=== PATIENT | male | born 1960 | race Two or more races ===

== ENCOUNTER 2019-03-16 19:46 | Emergency (ER) | payer OTHER ==
[~2019-03-16] VITALS: Ht 177.8 cm; Wt 95.3 kg
--- NOTE | 2019-03-16 19:59 | Emergency Room Report ---
History of Present Illness General Chief Complaint: Left Lip Abrasion Source: Patient, EMS Present Illness HPI 58-year-old male presents with mechanical fall, patient was drinking, fell forward hit his left lip, no LOC, no chest pain or shortness of breath, no proceeding symptoms, patient states he was drinking prior. Patient endorses some sharp lip pain aggravated with movement alleviated with rest, severity is mild. Patient presents for evaluation via EMS Allergies: Coded Allergies: No Known Allergies (Unverified , 03/16/19) Patient History Past Medical History: see triage record Social History: Reports: alcohol use Reviewed Nursing Documentation: PMH: Agreed; PSxH: Agreed Review of Systems All Other Systems: negative except mentioned in HPI Physical Exam Vital Signs Date Time Temp Pulse Resp B/P (MAP) Pulse Ox O2 Delivery O2 Flow Rate FiO2 03/16/19 19:40 98.2 96 18 115/72 (86) 98 Sp02 EP Interpretation: reviewed, normal General Appearance: well appearing, no apparent distress, alert Head: normocephalic, other - Left lip abrasion bottom lip, no laceration Eyes: bilateral eye PERRL, bilateral eye EOMI ENT: uvula midline, moist mucus membranes Neck: supple, thyroid normal, supple/symm/no masses, other - No C-spine tenderness Respiratory: lungs clear, no respiratory distress, no retraction, no accessory muscle use Cardiovascular #1: normal peripheral pulses, regular rate, rhythm, no edema, no gallop, no murmur Gastrointestinal: non tender, soft, no guarding, no rebound Musculoskeletal: normal inspection Neurologic: alert, oriented x3 Psychiatric: mood/affect normal Skin: no rash, warm/dry Medical Decision Making Diagnostic Impression: Primary Impression: Fall Qualified Codes: W19.XXXA - Unspecified fall, initial encounter Additional Impressions: Alcohol intoxication Qualified Codes: F10.920 - Alcohol use, unspecified with intoxication, uncomplicated Abrasion of lip, initial encounter ER Course 58-year-old male history of alcohol use presents with mechanical fall, patient states he was drinking fell forward hit his face, no LOC denies any midline neck pain, patient was given a Tdap, patient was also checked for head bleed. CT brain negative Patient with a lip abrasion no indication for suturing Patient is pending sobriety, most likely to be discharged once sober CT/MRI/US Diagnostic Results CT/MRI/US Diagnostic Results : Impression EXAM: CT Head Without Intravenous Contrast CLINICAL HISTORY: pain. s/p fall TECHNIQUE: Axial computed tomography images of the head/brain without intravenous contrast. CTDI is 70.48 mGy and DLP is 1403 mGy-cm. One or more of the following dose reduction techniques were used: automated exposure control, adjustment of the mA and/or kV according to patient size, use of iterative reconstruction technique. COMPARISON: none FINDINGS: No intracranial hemorrhage, abnormal intra- or extra-axial collections or parenchymal lesions are seen. There are involutional changes with prominence of the sulci, basal cisterns and ventricles. Scattered white matter hypoattenuations are present, likely from small vessel disease. The levy-white differentiation is preserved. No evidence of mass effect, midline shift, or edema. The osseous structures are unremarkable. The visualized portions of the paranasal sinuses are clear. Right parietal region scalp contusion is noted. There is mild thickening of the left posterior frontal scalp as well, also suspicious for possible scalp contusion. IMPRESSION: 1. Mild right parietal and possibly left posterior frontal scalp contusions but no associated skull fracture or acute intracranial process. 2. Involutional changes with small vessel disease. Radiologist: Radha Gonzalez MD Electronically Signed: 03/16/19 21:22 Study ready at 20:47 and initial results transmitted at 21:22 Last Vital Signs Date Time Temp Pulse Resp B/P (MAP) Pulse Ox O2 Delivery O2 Flow Rate FiO2 03/16/19 19:40 98.2 96 18 115/72 (86) 98 Disposition: HOME, SELF-CARE Condition: Stable Referrals: [facility]. [facility] Patient Instructions: Abrasion, [id number], Traumatic Brain Injury Additional Instructions: The patient was provided with discharge instructions, notified to follow-up with a primary care doctor and or specialist in the next 24-48 hours, and to return to the ED if they have worsening of their symptoms. Please note that this report is being documented using [employer] technology. This can lead to erroneous entry secondary to incorrect interpretation by the dictating instrument. Reno Tena MD Mar 16, 2019 19:59
[2019-03-16] MEDS ORDERED: Tetanus/Diptheria/Pertussis IM ONE ×2 (20:00→20:58)
[2019-03-16 20:40] VITALS: BP 115/72
--- NOTE | 2019-03-16 20:40 | NUR ---
ED Nurse Note: Patient was BIBAfrom the street due to ETOH, and fall. Patient presented with abrasion of his left side of face. AAO x1, VSS at this time, skin warm to touch.
[2019-03-16 23:40] VITALS: BP 125/75
--- NOTE | 2019-03-17 01:00 | NUR ---
ED Nurse Note: Patient is the bed resting, VSS at this time, no acute disstress noticed.
[2019-03-17 02:41] VITALS: BP 130/65
[2019-03-17 06:19] VITALS: BP 130/65
--- NOTE | 2019-03-17 06:21 | NUR ---
ED Nurse Note: Pt cleared by health care Provider for discharge. DC instructions/prescription was given and explained to pt and verbalized understanding of teachings. All medical deviecs such as ID band removed. Pt is AAO x4, ambulatory and left with all personal belongings.
--- NOTE | 2019-03-18 08:28 | Diagnostic Imaging Report ---
EXAM: CT Head Without Intravenous Contrast CLINICAL HISTORY: pain. s/p fall TECHNIQUE: Axial computed tomography images of the head/brain without intravenous contrast. CTDI is 70.48 mGy and DLP is 1403 mGy-cm. One or more of the following dose reduction techniques were used: automated exposure control, adjustment of the mA and/or kV according to patient size, use of iterative reconstruction technique. COMPARISON: none FINDINGS: No intracranial hemorrhage, abnormal intra- or extra-axial collections or parenchymal lesions are seen. There are involutional changes with prominence of the sulci, basal cisterns and ventricles. Scattered white matter hypoattenuations are present, likely from small vessel disease. The levy-white differentiation is preserved. No evidence of mass effect, midline shift, or edema. The osseous structures are unremarkable. The visualized portions of the paranasal sinuses are clear. Right parietal region scalp contusion is noted. There is mild thickening of the left posterior frontal scalp as well, also suspicious for possible scalp contusion. IMPRESSION: 1. Mild right parietal and possibly left posterior frontal scalp contusions but no associated skull fracture or acute intracranial process. 2. Involutional changes with small vessel disease.
== END 2019-03-17 06:21 | disposition home or self-care (01) ==
LOC: EDBD 19:46 → EMR 20:17 → EDBD 20:17 → EMR 03-17 06:21
DX: S00.511A Abrasion of lip, initial encounter (principal); F10.129 Alcohol abuse with intoxication, unspecified; Z23 Encounter for immunization; W19.XXXA Unspecified fall, initial encounter; Y92.9 Unspecified place or not applicable
CPT/HCPCS: 70450; 90471; 90715; 99284

== ENCOUNTER 2019-06-16 16:52 | Emergency (ER) | payer OTHER ==
[~2019-06-16] VITALS: Ht 165.1 cm; Wt 81.6 kg
--- NOTE | 2019-06-16 16:53 | NUR ---
ED Nurse Note: PT was brought in by [facility] [id number], found on [address], tripped and fell, EtoH, PT states to RA that he been drinking quite a bit, L-forehead above brow laceration approximately 1inch, no hx or meds, bystander called 911. VS stable 140/96; HR 84; T 98.0 oral, saturating at 100% on RA. No reported seizure with RA unit.
[2019-06-16] MEDS ORDERED: Tetanus/Diptheria/Pertussis IM ONE ×2 (17:00→17:18)
[2019-06-16 17:24] VITALS: BP 140/96
--- NOTE | 2019-06-16 18:06 | Emergency Room Report ---
History of Present Illness General Chief Complaint: Alcohol Intoxication Source: Patient Present Illness HPI 59-year-old male presents with mechanical trip and fall, positive LOC, hit his left head, no neck tenderness, he endorses a frontal headache no aggravating relieving factors severity is mild, constant, patient denies any nausea vomiting chest pain shortness of breath patient reports that he was drinking prior to coming to the ED, patient presents for evaluation. Allergies: Coded Allergies: No Known Allergies (Unverified , 03/16/19) Patient History Past Medical History: see triage record Social History: Reports: alcohol use Reviewed Nursing Documentation: PMH: Agreed; PSxH: Agreed Nursing Documentation-PMH Past Medical History: No Stated History Review of Systems All Other Systems: negative except mentioned in HPI Physical Exam Vital Signs Date Time Temp Pulse Resp B/P (MAP) Pulse Ox O2 Delivery O2 Flow Rate FiO2 06/16/19 16:44 98.1 84 18 140/96 (111) 99 Room Air Sp02 EP Interpretation: reviewed, normal General Appearance: well appearing, no apparent distress, alert Head: normocephalic, other - 1 cm laceration left forehead Eyes: bilateral eye PERRL, bilateral eye EOMI ENT: uvula midline, moist mucus membranes Neck: supple, thyroid normal, supple/symm/no masses Respiratory: lungs clear, no respiratory distress, no retraction, no accessory muscle use Cardiovascular #1: normal peripheral pulses, regular rate, rhythm, no edema, no gallop, no murmur Gastrointestinal: non tender, soft, no guarding, no rebound Musculoskeletal: normal inspection Neurologic: alert, oriented x3 Psychiatric: mood/affect normal Skin: no rash, warm/dry Procedures Laceration/Wound Repair Laceration/Wound Repair : Consent: Verbal Wound Location: head Wound's Depth, Shape: superficial Wound Length (cm): 1 Wound Explored: clean Irrigated w/ Saline (ccs): 50 Betadine Prep?: Yes Wound Repaired With: Dermabond Patient Tolerated: Well Complications: None Medical Decision Making Diagnostic Impression: Primary Impression: Acute alcoholic intoxication Qualified Codes: F10.920 - Alcohol use, unspecified with intoxication, uncomplicated Additional Impressions: Closed head injury Qualified Codes: S09.90XA - Unspecified injury of head, initial encounter Forehead laceration Qualified Codes: S01.81XA - Laceration without foreign body of other part of head, initial encounter ER Course 59-year-old male presents with closed head injury after mechanical fall, positive LOC, C-spine negative for any acute processes, patient no longer intoxicated after observation CT face, CT brain negative for any acute processes Patient with old nasal fracture nothing new, no pain midface, Tdap given, laceration closed with Dermabond Dispo home w/ return precautions CT/MRI/US Diagnostic Results CT/MRI/US Diagnostic Results : Impression Preliminary Findings Only See Final Report For Complete Findings CT HEAD: INDICATION: Trauma TECHNIQUE: Multiple, contiguous 5 mm axial cuts of the brain are obtained from the posterior fossa to the cranial vault. Sagittal and coronal reformatted images provided. No IV contrast is administered. COMPARISON: March 16, [address] without IV contrast FINDINGS: No intracranial hemorrhage, abnormal intra- or extra-axial collections or parenchymal lesions are seen. There are involutional changes with prominence of the sulci, basal cisterns and ventricles. Scattered white matter hypoattenuations are present, likely from small vessel disease. The levy- white differentiation is preserved. No evidence of mass effect, midline shift, or edema. The osseous structures are unremarkable. The visualized portions of the paranasal sinuses are clear. Minimal left parietal scalp contusion. IMPRESSION: 1. No acute intracranial process. 2. Involutional changes with small vessel disease. Radiologist: Radha Gonzalez MD Study ready at 19:09 and initial results transmitted at 19:20 Preliminary Findings Only See Final Report For Complete Findings CT FACIAL: INDICATION: trauma TECHNIQUE: Multiple, contiguous 3 mm axial cuts of the facial bones are obtained. Sagittal and coronal reformatted images are provided. No IV contrast is administered. COMPARISON: none FINDINGS: Mild deformity to the right nasal bone is favored to be old fracture. Otherwise no acute facial fractures are present. The maxillary, ethmoid, sphenoid and frontal sinuses are clear bilaterally. There is no mucoperiosteal thickening or air-fluid levels. The osteomeatal units are well aerated bilaterally. The turbinates are normal. The nasal septum is midline but slightly bowed leftward. No bony erosions are seen. IMPRESSION: Likely old right nasal bone fracture. Otherwise unremarkable CT of the face. Radiologist: Radha Gonzalez MD Study ready at 19:08 and initial results transmitted at 19:22 Last Vital Signs Date Time Temp Pulse Resp B/P (MAP) Pulse Ox O2 Delivery O2 Flow Rate FiO2 06/16/19 17:24 84 18 Room Air 06/16/19 17:24 98.1 140/96 99 Disposition: HOME, SELF-CARE Condition: Stable Referrals: [facility] Patient Instructions: Alcohol Intoxication, [id number], Concussion, Adult, [id number], Fall Prevention in Hospitals, Adult, Head Injury, Adult Additional Instructions: The patient was provided with discharge instructions, notified to follow-up with a primary care doctor and or specialist in the next 24-48 hours, and to return to the ED if they have worsening of their symptoms. Please note that this report is being documented using [employer] technology. This can lead to erroneous entry secondary to incorrect interpretation by the dictating instrument. Reno Tena MD Jun 16, 2019 18:06
--- NOTE | 2019-06-16 18:31 | NUR ---
ED Nurse Note: PT in bed, sleeping, no respiratory distress on RA. Will continue to monitor PT.
--- NOTE | 2019-06-16 19:04 | NUR ---
ED Nurse Note: PT and report given to MARK Murphy.
[2019-06-16 19:05] VITALS: BP 135/88
--- NOTE | 2019-06-16 19:05 | NUR ---
ED Nurse Note: Received report from Nick FLORES. Pt seen sleeping in bed. No SOB. VSS.
[2019-06-16 19:42] VITALS: BP 131/77
--- NOTE | 2019-06-16 19:42 | NUR ---
ED Nurse Note: Pt cleared by ERMD for discharge. DC instructions was given and explained to pt and verbalized understanding of teachings. All medical deviecs such as ID band removed. Pt is AAO x4, ambulatory and left with all personal belongings.
--- NOTE | 2019-06-17 09:50 | Diagnostic Imaging Report ---
Indication: Head trauma headache Technique: Contiguous 5 mm thick transaxial imaging of the head obtained in a Siemens Sensation [address] scanner. Soft tissue and bone windows generated. Automatic Exposure Control was utilized. Total Dose length Product (DLP): [address] Dose Index Volume (CTDIvol): 62.7 mGy Comparison: 03/16/2019 Findings: There is mild prominence of the ventricles, basal cisterns, and cerebral sulci consistent with atrophy. Mild, nonspecific, white matter hypoattenuation is noted throughout the brain consistent with chronic small vessel disease. There is no midline shift, edema, acute hemorrhage, mass effect, or abnormal extra-axial fluid collections. Bones are unremarkable. Impression: No acute intracranial bleed, mass effect or edema. Mild atrophy of the brain. Nonspecific white matter hypoattenuation probably due to chronic small vessel disease. The CT scanner at [facility] is accredited by the [employer] and the scans are performed using dose optimization techniques as appropriate to a performed exam including Automatic Exposure control.
--- NOTE | 2019-06-17 09:51 | Diagnostic Imaging Report ---
Indication: Orbital and maxillofacial trauma and pain Technique: Continuous helical transaxial imaging of the orbits/maxillofacial structures obtained without intravenous contrast administration. Coronal 2-D reformats were also obtained. Study obtained in a Siemens sensation [address] Automatic Exposure Control was utilized. Total Dose length Product (DLP): 678.[address] Dose Index Volume (CTDIvol): 29.6 mGy Comparison: None Findings: There is no evidence of an acute fracture. Paranasal sinuses and mastoids are clear. Soft tissues are unremarkable. There is a deformity and contraction of the left maxillary sinus which may be due to an old fracture. This could also be due to old sinusitis. There is deformity of the nasal bone as well probably an old nasal fracture. The mastoids are clear. IMPRESSION: Evidence of old nasal and facial injury. No acute fracture identified. The CT scanner at [facility] is accredited by the [employer] and the scans are performed using dose optimization techniques as appropriate to a performed exam including Automatic Exposure control.
== END 2019-06-16 20:00 | disposition home or self-care (01) ==
LOC: EDBD 16:52 → EMR 20:00
DX: S09.90XA Unspecified injury of head, initial encounter (principal); S01.81XA Laceration without foreign body of other part of head, initial encounter; F10.920 Alcohol use, unspecified with intoxication, uncomplicated; W01.0XXA Fall on same level from slipping, tripping and stumbling without subsequent striking against object, initial encounter; Y92.9 Unspecified place or not applicable
CPT/HCPCS: 12011; 70450; 70486; 90471; 90715; Z7502; 99284

== ENCOUNTER 2019-10-27 19:10 | Emergency (ER) | payer OTHER ==
[~2019-10-27] VITALS: Ht 170.2 cm; Wt 81.6 kg
[~2019-10-27 19:10] MED LIST: BENADRYL ALLERG25 M1 PO; PERMETHRIN60 GM TOPIC; TRIAMCINOLONE A15 G2 TP
[2019-10-27 19:16] VITALS: BP 130/90
--- NOTE | 2019-10-27 19:58 | Diagnostic Imaging Report ---
Indication: Orbital and maxillofacial trauma and pain Technique: Continuous helical transaxial imaging of the orbits/maxillofacial structures obtained without intravenous contrast administration. Coronal 2-D reformats were also obtained. Study obtained in a Siemens sensation [address] Automatic Exposure Control was utilized. Total Dose length Product (DLP): 338.[address] Dose Index Volume (CTDIvol): 15.3 mGy Comparison: None Findings: There is no evidence of an acute fracture. Paranasal sinuses and mastoids are clear. Soft tissues are unremarkable. There is irregularity of the posterior wall of the left maxillary sinus which is secondary to an old fracture. There is an old ununited zygomatic arch fracture. Irregularity of the nasal bone also likely posttraumatic from a prior injury. There is mucosal thickening within the left maxillary antrum. IMPRESSION: No acute injury appreciated. Evidence of a old left facial fractures [facility] has communicated the preliminary results to the Emergency Department. Their findings are largely concordant with this report. The CT scanner at [facility] is accredited by the [employer] and the scans are performed using dose optimization techniques as appropriate to a performed exam including Automatic Exposure control.
--- NOTE | 2019-10-27 21:20 | Emergency Room Report ---
History of Present Illness General Chief Complaint: Multiple Trauma/Fall Present Illness HPI 59-year-old male with history of alcohol intoxication brought in from the street by the paramedics complaining of fall. Patient is using a walker. Patient has history of alcohol intoxication. No signs of new trauma noted. Patient does not recall when the last time was that he fell. According to paramedics patient also went to a different emergency room earlier today. Denies all other injuries, no loss of consciousness noted. Denies dizziness, nausea vomiting. Sitting comfortably with stable vital signs. Denies fever and chills, URI symptoms, recent travel. COVID-19 risk:Contact w/high r: No COVID-19 risk:Travel to affect: No Has patient experienced fernandez: No Allergies: Coded Allergies: No Known Allergies (Unverified , 03/16/19) Patient History Past Medical History: see triage record Past Surgical History: none Pertinent Family History: none Immunizations: UTD Reviewed Nursing Documentation: PMH: Agreed; PSxH: Agreed Review of Systems All Other Systems: negative except mentioned in HPI Physical Exam Vital Signs Date Time Temp Pulse Resp B/P (MAP) Pulse Ox O2 Delivery O2 Flow Rate FiO2 10/27/19 19:06 98.6 84 16 130/90 (103) 98 Room Air Sp02 EP Interpretation: reviewed, normal General Appearance: no apparent distress, alert, GCS 15, non-toxic Head: normocephalic, atraumatic Eyes: bilateral eye normal inspection, bilateral eye PERRL ENT: hearing grossly normal, normal pharynx, no angioedema, normal voice Neck: full range of motion, supple/symm/no masses Respiratory: chest non-tender, lungs clear, normal breath sounds, no rhonchi, no wheezing, speaking full sentences Cardiovascular #1: regular rate, rhythm, no edema, no murmur Gastrointestinal: normal bowel sounds, non tender, soft, non-distended, no guarding, no rebound Rectal: deferred Genitourinary: no CVA tenderness Musculoskeletal: back normal Neurologic: alert, motor strength/tone normal, oriented x3, sensory intact, responsive, speech normal Psychiatric: judgement/insight normal, memory normal, mood/affect normal, no suicidal/homicidal ideation Skin: no rash Lymphatic: no adenopathy Medical Decision Making PA Attestation All diagnoses and treatment plans were reviewed and discussed with my supervising physician Dr. Goss Diagnostic Impression: Primary Impression: Alcohol intoxication Additional Impression: Facial trauma ER Course 59-year-old male with history of alcohol intoxication brought in from the street by the paramedics complaining of fall. Patient is using a walker. Patient has history of alcohol intoxication. No signs of new trauma noted. Patient does not recall when the last time was that he fell. According to paramedics patient also went to a different emergency room earlier today. Denies all other injuries, no loss of consciousness noted. Denies dizziness, nausea vomiting. Sitting comfortably with stable vital signs. Denies fever and chills, URI symptoms, recent travel. Ddx considered but are not limited to: cerebral hematoma, concussion, skull fracture, head contusion, Vital signs: are WNL, pt. is afebrile H&PE are most consistent with: Old nasal bone fracture, alcohol intoxication ORDERS: Facial CT no contrast, NS bolus, alcohol level ED INTERVENTIONS: 2 L of NS bolus I signed out the patient to Dr. Schmidt at 9pm DISCHARGE: At this time pt. is stable for d/c to home. Will provide printed patient care instructions, and any necessary prescriptions. Care plan and follow up instructions have been discussed with the patient prior to discharge. CT/MRI/US Diagnostic Results CT/MRI/US Diagnostic Results : Imaging Test Ordered: Facial CT no contrast Impression Old nasal bone fracture nothing acute Last Vital Signs Date Time Temp Pulse Resp B/P (MAP) Pulse Ox O2 Delivery O2 Flow Rate FiO2 10/27/19 19:06 98.6 84 16 130/90 (103) 98 Room Air Disposition: HOME, SELF-CARE Condition: Stable Scripts No Active Prescriptions or Reported Meds Referrals: [facility],REFERRING (PCP) Patient Instructions: Alcohol Intoxication, [id number] Danny Longo Oct 27, 2019 21:20
[2019-10-27 22:30] VITALS: BP 132/85
== END 2019-10-27 22:30 | disposition home or self-care (01) ==
LOC: EDBD 19:10 → EMR 19:48
DX: F10.129 Alcohol abuse with intoxication, unspecified (principal); S02.2XXD Fracture of nasal bones, subsequent encounter for fracture with routine healing; X58.XXXD Exposure to other specified factors, subsequent encounter
CPT/HCPCS: 36415; 70486; 80307; 96360; 96361; G0480; J7030; Z7502; 99284

== ENCOUNTER 2020-01-08 21:58 | Emergency (ER) | payer OTHER ==
[~2020-01-08] VITALS: Ht 165.1 cm; Wt 98.9 kg
[2020-01-08 21:40] VITALS: BP 113/69
--- NOTE | 2020-01-08 22:02 | Emergency Room Report ---
History of Present Illness General Chief Complaint: Multiple Trauma/Fall Source: Patient, Medical Record, EMS Present Illness HPI Is a 59-year-old male with a history of alcoholism. He presents with chief complaint of a fall with head injury and elbow pain. He was just discharged from [facility] a few hours ago. He was drinking and fell a couple times. He has injury to his right elbow. He said he hit his head. He said he felt weak and dizzy. No loss of consciousness. Nothing made it better. Movement made it worse. Similar symptom in the past. Allergies: Coded Allergies: No Known Allergies (Unverified , 03/16/19) COVID-19 Screening Contact w/high risk pt: No Recent Travel to affected area: No Experienced COVID-19 symptoms?: No COVID-19 Testing performed SCIENTIFIC INFORMATICS ANALYST: No Patient History Past Medical History: see triage record, old chart reviewed Past Surgical History: none Pertinent Family History: none Social History: Reports: alcohol use Immunizations: other Reviewed Nursing Documentation: PMH: Agreed; PSxH: Agreed Nursing Documentation-PMH Hx Hypertension: Yes Review of Systems Eye: Denies: eye pain, blurred vision ENT: Denies: ear pain, nose congestion, throat swelling Respiratory: Denies: cough, shortness of breath Cardiovascular: Denies: chest pain, palpitations Gastrointestinal: Denies: abdominal pain, diarrhea, nausea, vomiting Musculoskeletal: Reports: joint pain; Denies: back pain Skin: Denies: rash Neurological: Denies: headache, numbness Endocrine: Denies: increased thirst, increased urine Hematologic/Lymphatic: Denies: easy bruising All Other Systems: negative except mentioned in HPI Physical Exam Vital Signs Date Time Temp Pulse Resp B/P (MAP) Pulse Ox O2 Delivery O2 Flow Rate FiO2 01/08/20 21:22 97.2 68 20 113/69 (84) 99 Room Air Vitals normal Sp02 EP Interpretation: reviewed, normal General Appearance: well appearing, no apparent distress, alert, other - Intoxicated Head: normocephalic, atraumatic - No obvious trauma Eyes: bilateral eye PERRL, bilateral eye EOMI ENT: hearing grossly normal, normal pharynx Neck: full range of motion, supple, no meningismus Respiratory: chest non-tender, lungs clear, normal breath sounds Cardiovascular #1: regular rate, rhythm, no murmur Gastrointestinal: normal bowel sounds, non tender, no mass, no organomegaly, no bruit, non-distended Musculoskeletal: back normal, normal range of motion, other - Skin abrasion to right elbow. Full range of motion. Neurologic: alert, oriented x3 Psychiatric: mood/affect normal Medical Decision Making Diagnostic Impression: Primary Impression: Alcohol intoxication Qualified Codes: F10.920 - Alcohol use, unspecified with intoxication, uncomplicated Additional Impressions: Head injury, acute Qualified Codes: S09.90XA - Unspecified injury of head, initial encounter Abrasion of right elbow, initial encounter ER Course This patient presents with alcohol intoxication and fall. He only has soft tissue injury. No evidence of any intracranial bleed or skull fracture. He has high risk because of his alcohol abuse. Patient does not want to go to rehab. Will discharge home when more clinically sober.. Other X-Ray Diagnostic Results Other X-Ray Diagnostic Results : X-Ray ordered: Right elbow x-rays # of Views/Limited Vs Complete: 3 View Indication: Pain EP Interpretation: Yes Interpretation: no dislocation, no soft tissue swelling, no fractures Impression: No acute disease Electronically Signed by: Marquise Malone MD CT/MRI/US Diagnostic Results CT/MRI/US Diagnostic Results : Imaging Test Ordered: CT head Impression No acute process per radiologist Last Vital Signs Date Time Temp Pulse Resp B/P (MAP) Pulse Ox O2 Delivery O2 Flow Rate FiO2 01/08/20 21:40 68 20 Room Air 01/08/20 21:40 97.2 113/69 99 Status: improved Disposition: HOME, SELF-CARE Condition: Stable Scripts No Active Prescriptions or Reported Meds Additional Instructions: Abstain from alcohol. Follow-up with your doctor in 7 days. Return if worse. Marquise Malone MD Jan 08, 2020 22:02
--- NOTE | 2020-01-08 23:03 | Diagnostic Imaging Report ---
EXAM: CT Head Without Intravenous Contrast CLINICAL HISTORY: TRAUMA TECHNIQUE: Axial computed tomography images of the head/brain without intravenous contrast. CTDI is 53.4 mGy and DLP is 1072.2 mGy-cm. One or more of the following dose reduction techniques were used: automated exposure control, adjustment of the mA and/or kV according to patient size, use of iterative reconstruction technique. COMPARISON: 06/16/[address] without IV contrast FINDINGS: No intracranial hemorrhage, abnormal intra- or extra-axial collections or parenchymal lesions are seen. There are involutional changes with prominence of the sulci, basal cisterns and ventricles. Scattered white matter hypoattenuations are present, likely from small vessel disease. The levy-white differentiation is preserved. No evidence of mass effect, midline shift, or edema. The osseous structures are unremarkable. The visualized portions of the paranasal sinuses are clear. Persistent or recurrent left parietal region scalp thickening compatible with contusion IMPRESSION: 1. No acute intracranial process. 2. Involutional changes with small vessel disease. 3. Findings suggesting recurrent left parietal scalp contusion. Correlate clinically
[2020-01-09 01:30] VITALS: BP 122/80
[2020-01-09 04:35] VITALS: BP 116/72
[2020-01-09 05:00] VITALS: BP 120/74
--- NOTE | 2020-01-09 10:02 | Diagnostic Imaging Report ---
Indications:Reason For Exam: TRAUMA Technique: Three or 4 views of the right elbow Comparison: None Findings: Exam is limited as lateral view is not a true lateral and therefore an effusion is not excludable. There are degenerative proliferative changes of the olecranon and the coronary process. No definite acute fractures. No dislocations. Impression: Limited exam, as described Degenerative changes No definite acute bony trauma
== END 2020-01-09 05:00 | disposition home or self-care (01) ==
LOC: EMR 22:02
DX: F10.920 Alcohol use, unspecified with intoxication, uncomplicated (principal); S09.90XA Unspecified injury of head, initial encounter; S50.311A Abrasion of right elbow, initial encounter; I10 Essential (primary) hypertension; W01.0XXA Fall on same level from slipping, tripping and stumbling without subsequent striking against object, initial encounter; Y93.9 Activity, unspecified; Y92.9 Unspecified place or not applicable
CPT/HCPCS: 70450; 73080; Z7502; 99284

== ENCOUNTER 2020-03-29 11:17 | Emergency (ER) | payer OTHER ==
[~2020-03-29] VITALS: Ht 177.8 cm; Wt 79.4 kg
[2020-03-29 11:25] VITALS: BP 138/76
--- NOTE | 2020-03-29 11:30 | NUR ---
ED Nurse Note: Patient was BIBA from street, patient c/o bugs all over him. Stated I can not sleep because they crolling all over me. Patient AAO x4, VSS at this time, patient has bug bites all over him. Per patient he did not shower for past 2 years.
[2020-03-29] MEDS ORDERED: DOXYCYCLINE MO100 MG ORAL (12:22)
[2020-03-29] MEDS ORDERED: PERMETHRIN60 GM TOPIC (12:22)
[2020-03-29] MEDS ORDERED: chlordiazePOXIDE 25mg Cap ORAL ONE (12:45)
[2020-03-29] MEDS ORDERED: Vancomycin 1 GM in NS 275 ML IVPB ONE (12:45)
[2020-03-29] MEDS ORDERED: Thiamine 100mg tab ORAL ONE (12:45)
--- NOTE | 2020-03-29 12:57 | NUR ---
ED Nurse Note: patient was given bath, all wounds were cleaned, bacitracin was aplyed
[2020-03-29] MEDS ORDERED: Bacitracin Oint 15gm Tube TOPIC SCH (13:00)
--- NOTE | 2020-03-29 13:01 | Emergency Room Report ---
History of Present Illness General Chief Complaint: General Complaint Source: Patient Present Illness HPI 59-year-old homeless male with unknown past medical history here with lower extremity swelling and pain and shortness of breath. Patient says his symptoms have been on and off for several months but got acutely worse today. He said that he believes he had fever but does not check his temperature. Patient arrived he was covered in bedbugs. He has been living on the streets and encampment[place]. Says that "there were maggots crawling out of my feet" several weeks ago but says that he "pick them out." Says that both his legs have been swelling acutely over the past 2 days and he says "whenever this happens I also get short of breath." Has never seen a doctor or cafeteria director. No fevers, chills, chest pain, back pain, abdominal pain, nausea, vomiting, diarrhea, dysuria. Patient says that he drinks 24 beers daily Allergies: Coded Allergies: No Known Allergies (Unverified , 03/16/19) COVID-19 Screening Contact w/high risk pt: No Recent Travel to affected area: No Experienced COVID-19 symptoms?: No COVID-19 Testing performed EMERGENCY DEPT TECH: No Nursing Documentation-[facility] Past Medical History: No Stated History Hx Hypertension: Yes Review of Systems All Other Systems: negative except mentioned in HPI Physical Exam Vital Signs Date Time Temp Pulse Resp B/P (MAP) Pulse Ox O2 Delivery O2 Flow Rate FiO2 03/29/20 11:17 98.8 88 18 138/76 (96) 98 Room Air Sp02 EP Interpretation: reviewed, normal General Appearance: no apparent distress, alert, GCS 15, non-toxic Head: normocephalic, atraumatic Eyes: bilateral eye normal inspection, bilateral eye PERRL ENT: hearing grossly normal, normal pharynx, no angioedema, normal voice Neck: full range of motion, supple/symm/no masses Respiratory: chest non-tender, lungs clear, normal breath sounds, speaking full sentences Cardiovascular #1: regular rate, rhythm, no edema Cardiovascular #2: 2+ carotid (R), 2+ carotid (L), 2+ radial (R), 2+ radial (L) , 2+ dorsalis pedis (R), 2+ dorsalis pedis (L) Gastrointestinal: normal bowel sounds, non tender, soft, non-distended, no guarding, no rebound Rectal: deferred Genitourinary: normal inspection, no CVA tenderness Musculoskeletal: back normal, normal range of motion, calf tenderness, gait/ station normal, other - 3+ pitting edema of the bilateral lower extremities distal to the knees capillary refill normal. Pulses intact. No evidence of trauma. Severe venous stasis ulceration bilaterally with serosanguineous fluid draining. Large ulcers on plantar aspects of both feet diffusely Neurologic: alert, motor strength/tone normal, oriented x3, sensory intact, responsive, speech normal Psychiatric: judgement/insight normal, memory normal, mood/affect normal, no suicidal/homicidal ideation Reflexes: 3+ bicep (R), 3+ bicep (L), 3+ tricep (R), 3+ tricep (L), 3+ knee (R) , 3+ knee (L) Medical Decision Making Diagnostic Impression: Primary Impression: Infestation by bed bug Additional Impression: Cellulitis ER Course Laboratory Tests Test 03/29/20 13:10 White Blood Count 7.6 K/UL (4.8-10.8) Red Blood Count 4.18 M/UL (4.70-6.10) L Hemoglobin 9.3 G/DL (14.2-18.0) L Hematocrit 32.5 % (42.0-52.0) L Mean Corpuscular Volume 78 FL (80-99) L Mean Corpuscular Hemoglobin 22.3 PG (27.0-31.0) L Mean Corpuscular Hemoglobin Concent 28.7 G/DL (32.0-36.0) L Red Cell Distribution Width 16.5 % (11.6-14.8) H Platelet Count 197 K/UL (150-450) Mean Platelet Volume 7.1 FL (6.5-10.1) Neutrophils (%) (Auto) % (45.0-75.0) Lymphocytes (%) (Auto) % (20.0-45.0) Monocytes (%) (Auto) % (1.0-10.0) Eosinophils (%) (Auto) % (0.0-3.0) Basophils (%) (Auto) % (0.0-2.0) Differential Total Cells Counted 100 Neutrophils % (Manual) 50 % (45-75) Lymphocytes % (Manual) 15 % (20-45) L Monocytes % (Manual) 6 % (1-10) Eosinophils % (Manual) 29 % (0-3) H Basophils % (Manual) 0 % (0-2) Band Neutrophils 0 % (0-8) Platelet Estimate Adequate Platelet Morphology Clumped Platelets Occasional Polychromasia 1+ Hypochromasia 1+ Anisocytosis 1+ Microcytosis 1+ Sodium Level 142 MMOL/L (136-145) Potassium Level 3.9 MMOL/L (3.5-5.1) Chloride Level 108 MMOL/L (98-107) H Carbon Dioxide Level 22 MMOL/L (21-32) Anion Gap 12 mmol/L (5-15) Blood Urea Nitrogen 21 mg/dL (7-18) H Creatinine 1.3 MG/DL (0.55-1.30) Estimated Glomerular Filtration Rate 56.1 mL/min (>60) Glucose Level 104 MG/DL (74-106) Calcium Level 8.9 MG/DL (8.5-10.1) Total Bilirubin 0.5 MG/DL (0.2-1.0) Aspartate Amino Transferase (AST) 143 U/L (15-37) H Alanine Aminotransferase (ALT) 125 U/L (12-78) H Alkaline Phosphatase 78 U/L (46-116) Troponin I 0.000 ng/mL (0.000-0.056) Pro-B-Type Natriuretic Peptide 264 pg/mL (0-125) H Total Protein 8.8 G/DL (6.4-8.2) H Albumin 3.6 G/DL (3.4-5.0) Globulin 5.2 g/dL Albumin/Globulin Ratio 0.7 (1.0-2.7) L 59-year-old male here for evaluation of lower extremity swelling and pain. Patient was incredibly disheveled appearing when he arrived in the emergency department. He had been sleeping on the streets for months to years. He had very large bedbugs and fecal matter strewn about his jeans. He had very significant lower extremity edema with many chronic appearing ulcers that also appeared acutely infected bilaterally. He had small plaque-like scabs throughout his entire body. He was cleaned immensely by the nursing staff here in the emergency department with a very large amount of dirt and grime and bugs taken from the patient's skin. CBC largely unremarkable. CMP showed elevated liver enzymes. Patient admitted to drinking 24 beers daily. X-rays unremarkable. Opponent negative. BNP mildly elevated patient given IV fluids and started on vancomycin for cellulitis treatment. Will be transferred for admission. EKG: EKG: NSR, no ischemia, intervals WNL. No ectopy Rhythm strip: patient monitored for arrhythmias - no malignant dysrhythmias, runs of PVCs, nor pauses noted Foot x-ray: No acute fracture. Degenerative changes bilaterally. Diffuse soft tissue swelling Last Vital Signs Date Time Temp Pulse Resp B/P (MAP) Pulse Ox O2 Delivery O2 Flow Rate FiO2 03/29/20 11:25 88 18 Room Air 03/29/20 11:25 98.8 138/76 98 Disposition: HOME, SELF-CARE Condition: Stable Scripts Doxycycline Monohydrate* (DOXYCYCLINE MONOHYDRATE*) 100 Mg Capsule 100 MG ORAL Q12H, #14 CAP 0 Refills Prov: Kong Sanchez M.D. 03/29/20 Permethrin* (ELIMITE*) 60 Gm Cream..g. 1 APPLIC TOPIC ONCE, #60 GM 0 Refills Apply cream from head to toe; leave on for 8-14 hours before washing off with water; may reapply in 1 week if live mites appear. Prov: Kong Sanchez M.D. 03/29/20 Referrals: [facility] Patient Instructions: Cellulitis Additional Instructions: Please follow-up with your primary care doctor in the next 1 to 3 days to discuss this emergency department visit and for reevaluation. If you have any new or worsening symptoms please return to the emergency department for reevaluation. Kong Sanchez M.D. Mar 29, 2020 13:01
[2020-03-29 13:26] LABS: HEMATOCRIT 32.5 % (42.0-52.0); HEMOGLOBIN 9.3 G/DL (14.2-18.0); MEAN CORPUSCULAR VOLUME 78 FL (80-99); PLATELET COUNT 197 K/UL (150-450); RED BLOOD COUNT 4.18 M/UL (4.70-6.10); RED CELL DISTRIBUTION WIDTH 16.5 % (11.6-14.8); WHITE BLOOD COUNT 7.6 K/UL (4.8-10.8)
[2020-03-29 13:36] LABS: ANION GAP 12 mmol/L (5-15); BLOOD UREA NITROGEN 21 mg/dL (7-18); CALCIUM 8.9 MG/DL (8.5-10.1); CARBON DIOXIDE 22 MMOL/L (21-32); CHLORIDE 108 MMOL/L (98-107); CREATININE 1.3 MG/DL (0.55-1.30); POTASSIUM 3.9 MMOL/L (3.5-5.1); SODIUM 142 MMOL/L (136-145)
[2020-03-29 13:50] LABS: ALANINE AMINOTRANSFERASE 125 U/L (12-78); ALBUMIN 3.6 G/DL (3.4-5.0); ALBUMIN/GLOBULIN RATIO 0.7 (1.0-2.7); ALKALINE PHOSPHATASE 78 U/L (46-116); ASPARTATE AMINO TRANSFERASE 143 U/L (15-37); BILIRUBIN,TOTAL 0.5 MG/DL (0.2-1.0)
--- NOTE | 2020-03-29 14:22 | Diagnostic Imaging Report ---
EXAM: XR Right Foot, 2 Views CLINICAL HISTORY: SOB TECHNIQUE: Frontal and lateral views of the right foot. COMPARISON: No relevant prior studies available. FINDINGS: Bones/joints: No acute fracture. Degenerative changes in the foot. Plantar calcaneal spur. Soft tissues: Diffuse soft tissue swelling. IMPRESSION: No acute fracture.
--- NOTE | 2020-03-29 14:24 | Diagnostic Imaging Report ---
EXAM: XR Left Foot, 2 Views CLINICAL HISTORY: SOB TECHNIQUE: Frontal and lateral views of the left foot. COMPARISON: No relevant prior studies available. FINDINGS: Bones/joints: No acute fracture. Soft tissues: Diffuse soft tissue swelling. IMPRESSION: No acute fracture.
--- NOTE | 2020-03-29 14:25 | Diagnostic Imaging Report ---
EXAM: XR Chest, 1 View CLINICAL HISTORY: SOB TECHNIQUE: Frontal view of the chest. COMPARISON: No relevant prior studies available. FINDINGS: Lungs: Reduced lung volumes. Patchy infiltrates in the left lung base. Accentuation of interstitial markings bilaterally. Pleural space: Unremarkable. No pneumothorax. Heart: Large cardiac silhouette. Mediastinum: Unremarkable. Bones/joints: No acute fracture. IMPRESSION: Reduced lung volumes. Patchy infiltrates in the left lung base. Accentuation of interstitial markings bilaterally.
[2020-03-29 16:59] VITALS: BP 138/76
--- NOTE | 2020-03-29 17:03 | NUR ---
ED Nurse Note: Patient was transfered to [facility] due to bilateral cellulitis. Patient was transfered via private [employer] transportation UNIT # [id number], WITH ALL BELONGINGS. Patient AAO X4, VSS at this time.
== END 2020-03-29 17:06 | disposition home or self-care (01) ==
LOC: EDBD 11:17 → EMR 13:10
DX: L03.90 Cellulitis, unspecified (principal); T14.8XXA Other injury of unspecified body region, initial encounter; W57.XXXA Bitten or stung by nonvenomous insect and other nonvenomous arthropods, initial encounter; Y92.9 Unspecified place or not applicable; I10 Essential (primary) hypertension; Z59.0 Homelessness
CPT/HCPCS: 36415; 71045; 73620; 80053; 83880; 84484; 85007; 85025; 87040; 93005; 96365; J3370; J7030; J7050; Z7502; 99285